=== PATIENT | male | born 1955 | race Caucasian/White ===

== ENCOUNTER → 2020-10-16 | Outpatient (CLI) | payer MEDICARE, OTHER ==
[~2020-10-16] MED LIST: ADVIL200 MG PO
== END ==
LOC: COL.RAD 12:00
DX: N43.3 Hydrocele, unspecified (principal)

== ENCOUNTER 2020-11-22 13:44 | Outpatient (CLI) | payer MEDICARE, OTHER ==
[~2020-11-22] VITALS: Ht 182.9 cm; Wt 104.5 kg
[2020-11-22] VITALS (9 sets, daily range): BP systolic 70–143; BP diastolic 50–103; PULSE 31–104; TEMP 99.8
[2020-11-22] MEDS ORDERED: ADVIL200 MG PO (14:14)
--- NOTE | 2020-11-22 15:47 | NUR ---
Pt reported feeling nauseated at 1424.Vitals obtained upon arrival.Pt had observed syncopal episode immediately after report of nausea.BP observed 70/50,pulse in 30s.Pt observed pale anddiaphoretic.Pt urinated self during episode.Nidia Wild Rn in to assist.Pt placed on sales planning analyst.finger stick blood sugar obtained,112 result.Cool cloth applied to forhead and neck.Pt reports remember feeling lightheadedness prior to episode.Karla Spivey contacted by Michael carter.One liter of NS after infusion.Ok to given casirivimab infusion per Michael Carter.Pt observed continously by this nurse.
--- NOTE | 2020-11-22 16:43 | NUR ---
Pt escorted out via wheelchair by this nurse.
--- NOTE | 2020-11-22 17:09 | NUR ---
Jessica Spivey contacted after infusion completed.OK to discharg home after fluids completed.
== END 2020-11-22 17:10 ==
LOC: EUO 13:44
DX: U07.1 COVID-19 (principal)
CPT/HCPCS: J7030; Q0244

== ENCOUNTER 2024-01-05 16:38 | Observation (INO) | payer MEDICARE, OTHER ==
[2024-01-05] VITALS (9 sets, daily range): BP systolic 100–131; BP diastolic 61–82; PULSE 83–90; TEMP 97.4–98.5
[~2024-01-05] VITALS: Ht 182.9 cm; Wt 115.0 kg
[~2024-01-05 16:38] MED LIST changes: -ASPIRIN E.C. 8181 MG PO; -Iohexol 300 - 100 ML VIAL IV ONE; -NS 100 ML IV SCH
--- NOTE | 2024-01-05 17:00 | NUR ---
Pt arrives to room 316 with diagnosis of appendicitis. Plan is for appendectomy later today.
[2024-01-05 17:47] LABS: COLLECTION METHOD CLEAN CATCH
[2024-01-05 17:48] LABS: BASO % 0.4 % (0.0-2.0); EOS # 0.1 K/mm3 (0.0-0.7); GRAN % 72.3 % (42.2-75.2); HEMATOCRIT 44.4 % (42.0-52.0); HEMOGLOBIN 15.5 g/dl (13.5-18.0); LYMPH # 1.8 K/mm3 (1.2-3.4); LYMPH % 16.6 % (20.0-51.0); MEAN CELL VOLUME 93 fl (80.0-100.0); MEAN CORPUSCULAR HEMOGLOBIN 32 pg (27-31); MEAN CORPUSCULAR HGB CONC 35 g/dl (33.0-37.0); MEAN PLATELET VOLUME 9.3 fl (7.4-10.4); MONO % 9.3 % (1.7-9.3); PLATELET COUNT 176 K/mm3 (130-400); RED BLOOD COUNT 4.78 M/mm3 (4.20-5.60); REDCELL DISTRIBUTION WIDTH-CV 12.7 % (11.5-14.5)
[2024-01-05 17:50] LABS: URINE APPEARANCE CLEAR (CLEAR/HAZY); URINE BLOOD NEGATIVE (NEGATIVE); URINE COLOR YELLOW (YELLOW); URINE GLUCOSE NEGATIVE (NEGATIVE); URINE KETONE NEGATIVE (NEGATIVE); URINE NITRATE NEGATIVE (NEGATIVE); URINE PROTEIN(semi-quant) NEGATIVE (NEGATIVE)
[2024-01-05 18:05] LABS: ALBUMIN 3.6 g/dL (3.4-4.8); BILIRUBIN,TOTAL 1.1 mg/dL (0.2-1.2); CALCIUM 9.3 mg/dL (8.4-10.2); CREATININE, serum 1.06 mg/dL (0.72-1.25); POTASSIUM 4.3 mEq/L (3.5-4.5); TOTAL PROTEIN 7.4 g/dl (6.2-8.1)
[2024-01-05] MEDS ORDERED: Ondansetron 4 MG/2 ML VIAL IV PRN ×3 (18:15→20:30)
[2024-01-05] MEDS ORDERED: Morphine 4 MG/ML VIAL IV PRN ×2 (18:15→20:30)
[2024-01-05] MEDS ORDERED: LR 1,000 ML IV SCH (18:15)
[2024-01-05] MEDS ORDERED: ASPIRIN E.C. 8181 MG PO (18:49)
--- NOTE | 2024-01-05 19:00 | NUR ---
Patient to OR via bed per SUJATHA Mayfield.
[2024-01-05] MEDS ORDERED: Lidocaine PF 2% (20 MG/ML) 5 ML VIAL ONE ×2 (19:06→20:26)
[2024-01-05] MEDS ORDERED: fentaNYL 50 MCG/ML 2 ML VIAL ONE (19:07)
[2024-01-05] MEDS ORDERED: Atracurium 50 MG/5 ML VIAL IV ONE (19:11)
[2024-01-05] MEDS ORDERED: Ketorolac 30 MG/ML VIAL ONE (19:21)
[2024-01-05] MEDS ORDERED: dexAMETHasone 10 MG/ML VIAL ONE (19:21)
[2024-01-05] MEDS ORDERED: Ondansetron 4 MG/2 ML VIAL ONE (19:21)
[2024-01-05] MEDS ORDERED: Glycopyrrolate 0.2 MG/ML 1 ML VIAL ONE (19:47)
[2024-01-05] MEDS ORDERED: fentaNYL 50 MCG/ML 1 ML SYRINGE/VIAL [PACU/SDC ONLY] IV PRN (20:00)
[2024-01-05] MEDS ORDERED: Meperidine 50 MG/ML 1 ML VIAL IV PRN (20:00)
[2024-01-05] MEDS ORDERED: HYDROmorphone 1 MG/1 ML SYRINGE [PACU/SDC ONLY] IV PRN (20:00)
[2024-01-05] MEDS ORDERED: Ibuprofen 600 MG TAB PO PRN ×2 (20:30→21:30)
[2024-01-05] MEDS ORDERED: Acetaminophen 325 MG TAB PO PRN ×2 (20:30→21:30)
--- NOTE | 2024-01-05 21:45 | NUR ---
PATIENT ARRIVED BACK TO ROOM AT 2126. AT BEDSIDE. DENIES ANY PAIN OR NAUSEA AT THIS TIME. CURRENTLY EATING ICE CREAM AND HAS TOLERATED ICE CHIPS. HAS NOT YET PASSED GAS SINCE WAKING UP FROM SURGERY. ON 2L O2 NASAL CANNULA. CALL LIGHT WITHIN REACH
[2024-01-06] VITALS (7 sets, daily range): BP systolic 110–129; BP diastolic 71–81; PULSE 88–97; TEMP 97.9–98.4
--- NOTE | 2024-01-06 06:45 | NUR ---
awake and up to bathroom independently, bedside shift report received from SUJATHA Stanton
--- NOTE | 2024-01-06 07:50 | NUR ---
awake watching TV, full assessment completed, see interventions for further info, has ordered breakfast, denies needs
--- NOTE | 2024-01-06 09:30 | NUR ---
Dr Blount was in to see patient, he is ready for discharge
--- NOTE | 2024-01-06 09:39 | NUR ---
SW met with patient and to complete initial assessment for discharge planning. Patient dressed and ready for discharge upon SW entry to room. Patient and Janice ([phone]) live in [facility]. Patient sees Karla HEREDIA as his PCP and uses [facility] pharmacy. Patient denies having any DME and is active and independent. Plan is to return home today. Discharge plan: Home
--- NOTE | 2024-01-06 09:55 | NUR ---
discharge instructions given to patient and his , verbalizes understanding
--- NOTE | 2024-01-06 10:00 | NUR ---
discharged per WC
== END 2024-01-06 10:00 | disposition home or self-care (01) ==
LOC: MEDICAL 16:38
PROVIDERS: ADMIT Surgery
DX: K35.891 Other acute appendicitis without perforation, with gangrene (principal); Z79.82 Long term (current) use of aspirin
CPT/HCPCS: G0378; J0690; J1100; J1885; J2405; J2704; J3010; J7120

== ENCOUNTER → 2024-01-05 | Outpatient (CLI) | payer MEDICARE, OTHER ==
[~2024-01-05] MED LIST changes: +ASPIRIN E.C. 8181 MG PO; +Iohexol 300 - 100 ML VIAL IV ONE; +NS 100 ML IV SCH
== END ==
LOC: COL.RAD 14:37
DX: K37 Unspecified appendicitis (principal)
CPT/HCPCS: Q9967